=== PATIENT | female | born 1980 | race Caucasian/White ===

== ENCOUNTER → 2017-08-29 | Outpatient (CLI) | payer OTHER | LOC: M RAD 15:12 | DX: R10.32 Left lower quadrant pain (principal); N85.8 Other specified noninflammatory disorders of uterus; R93.8 Abnormal findings on diagnostic imaging of other specified body structures | CPT/HCPCS: 76856 ==

== ENCOUNTER → 2017-08-29 | Outpatient (CLI) | payer OTHER ==
[2017-08-29 19:23] LABS: BASO % 0.3 % (0.0-1.0); EOS % 0.3 % (0.0-3.0); HEMATOCRIT 41.9 % (36.0-47.0); HEMOGLOBIN 14.5 g/dl (12.0-16.0); IMMATURE GRANULOCYTE % 0.4 % (0-3.0); LYMPH % 8.4 % (24.0-44.0); MEAN CORPUSCULAR HGB CONC 34.6 g/dl (32.0-36.5); MEAN CORPUSCULAR VOLUME 92.5 fl (80.0-96.0); MONO # 0.5 10^3/uL (0.0-0.8); MONO % 4.4 % (0.0-5.0); NEUTROPHILS # 10.2 10^3/uL (1.8-7.7); NEUTROPHILS % 86.2 % (36.0-66.0); PLATELET COUNT, AUTOMATED 252 10^3/uL (150-450); RED BLOOD COUNT 4.53 10^6/uL (4.00-5.40); RED CELL DISTRIBUTION WIDTH 12.8 % (11.5-14.5); WHITE BLOOD COUNT 11.9 10^3/uL (4.0-10.0)
[2017-08-29 19:34] LABS: ALBUMIN 4.2 GM/DL (3.2-5.2); ALBUMIN/GLOBULIN RATIO 1.31 (1.00-1.93); ALKALINE PHOSPHATASE 80 U/L (45-117); ALT/SGPT 17 U/L (12-78); ANION GAP 8 MEQ/L (8-16); AST/SGOT 13 U/L (7-37); BILIRUBIN,TOTAL 0.6 MG/DL (0.2-1.0); BLOOD UREA NITROGEN 11 MG/DL (7-18); CALCIUM LEVEL 9.4 MG/DL (8.5-10.1); CARBON DIOXIDE LEVEL 24 MEQ/L (21-32); CHLORIDE LEVEL 107 MEQ/L (98-107); CREATININE FOR GFR 1.05 MG/DL (0.55-1.30); GLOMERULAR FILTRATION RATE > 60.0 (>60); GLUCOSE, FASTING 119 MG/DL (70-100); POTASSIUM SERUM 4.2 MEQ/L (3.5-5.1); SODIUM LEVEL 139 MEQ/L (136-145); TOTAL PROTEIN 7.4 GM/DL (6.4-8.2)
== END ==
LOC: M WUC 16:53
DX: R10.32 Left lower quadrant pain (principal)
CPT/HCPCS: 80053

== ENCOUNTER → 2017-09-03 | Outpatient (CLI) | payer OTHER | LOC: M RAD 10:18 | DX: M25.472 Effusion, left ankle (principal) | CPT/HCPCS: 73610 ==

== ENCOUNTER 2017-11-07 05:52 | Day surgery (SDC) | payer OTHER ==
[2017-11-07] MEDS ORDERED: LR 1,000 ML IV (06:00)
[2017-11-07] MEDS: LR 1,000 ML IV ×4 (06:24→17:30)
[2017-11-07] MEDS ORDERED: MIDAZOLAM INJ 2 MG/2 ML VIAL (J2250) As Ordered (07:42)
[2017-11-07] MEDS ORDERED: fentaNYL 250 MCG/5 ML INJECTION (J3010) As Ordered (07:42)
[2017-11-07] MEDS ORDERED: ROCURONIUM BROMIDE 50 MG/5 ML VIAL As Ordered ×3 (08:17→08:40)
[2017-11-07] MEDS ORDERED: dexameTHASONE 4 MG/ML 1ML VIAL (J1100) As Ordered (08:40)
[2017-11-07] MEDS ORDERED: LIDOCAINE 2% INJ 100 MG/5 ML SDV (FOR ANES.) As Ordered (08:40)
[2017-11-07] MEDS ORDERED: PROPOFOL 200 MG/20 ML VIAL As Ordered (08:40)
[2017-11-07] MEDS ORDERED: fentaNYL 100 MCG/2 ML INJECTION (J3010) As Ordered (08:41)
[2017-11-07] MEDS ORDERED: KETOROLAC 60 MG/2 ML VIAL (J1885) As Ordered (08:41)
[2017-11-07] MEDS ORDERED: ONDANSETRON 4MG/2ML VIAL (J2405) As Ordered (08:41)
[2017-11-07] MEDS: MORPHINE 1MG/ML IN 0.9% NACL 100ML IV BAG IV (09:15)
[2017-11-07] MEDS ORDERED: MORPHINE 1MG/ML IN 0.9% NACL 100ML IV BAG As Ordered (09:17)
[2017-11-07] MEDS ORDERED: fentaNYL 100 MCG/2 ML INJECTION (J3010) IV (09:30)
[2017-11-07] MEDS ORDERED: NALBUPHINE HCL 10 MG/ML AMP (J2300) IV (09:30)
[2017-11-07] MEDS ORDERED: PERCOCET 5MG/325MG TAB PO (09:30)
[2017-11-07] MEDS ORDERED: NALOXONE INJ 0.4 MG/1 ML VIAL (J2310) IV (09:30)
[2017-11-07] MEDS ORDERED: IBUPROFEN 600 MG TAB PO (09:30)
[2017-11-07] MEDS ORDERED: diphenhydrAMINE INJ 50MG/ML VIAL (J1200) IV (09:30)
[2017-11-07] MEDS ORDERED: METOCLOPRAMIDE INJ 10MG/2ML VIAL (J2765) IV (09:30)
[2017-11-07] MEDS ORDERED: ONDANSETRON 4MG/2ML VIAL (J2405) IV (09:30)
[2017-11-07] MEDS ORDERED: EPIDURAL/PCA KEYS XX (09:30)
[2017-11-07] MEDS: MEPERIDINE INJ 25 MG/ML VIAL (J2175) IV ×2 (09:35→09:45)
[2017-11-07] MEDS: tiZANidine 4 MG TAB PO (20:44)
[2017-11-08] MEDS: LR 1,000 ML IV (00:35)
[2017-11-08 07:04] LABS: HEMATOCRIT 32.5 % (36.0-47.0); HEMOGLOBIN 11.2 g/dl (12.0-15.5); MEAN CORPUSCULAR HEMOGLOBIN 32.1 pg (27.0-33.0); MEAN CORPUSCULAR HGB CONC 34.5 g/dl (32.0-36.5); MEAN CORPUSCULAR VOLUME 93.1 fl (80.0-96.0); PLATELET COUNT, AUTOMATED 169 10^3/uL (150-450); RED BLOOD COUNT 3.49 10^6/uL (4.00-5.40); RED CELL DISTRIBUTION WIDTH 12.8 % (11.5-14.5)
[2017-11-08] MEDS: ESCITALOPRAM OXALATE 10 MG TAB (LEXAPRO) PO (08:55)
[2017-11-08] MEDS: TOPIRAMATE (TopAMAX) 25 MG TAB PO (08:56)
[2017-11-08] MEDS: NORCO, ANEXSIA 5/325MG TABLET (HYDROcodone/ACETAMINOPHEN) PO (09:01)
== END 2017-11-08 10:30 | disposition home or self-care (01) ==
LOC: M SDC 05:52 → M PED 10:19
DX: N94.6 Dysmenorrhea, unspecified (principal); N94.10 Unspecified dyspareunia; D68.0 Von Willebrand disease; M54.9 Dorsalgia, unspecified; F32.9 Major depressive disorder, single episode, unspecified; Z91.030 Bee allergy status; Z79.899 Other long term (current) drug therapy
CPT/HCPCS: 58262

== ENCOUNTER → 2018-11-17 | Outpatient (REF) | payer OTHER ==
[~2018-11-17] MED LIST: ALEV220C2 PO; IBUP-1022 PO; IBUP200C PO; LEXA1TAB PO; MOBI15TA PO; MULTCAP8 PO; NEUR300C PO; NORC1TAB7 PO; PERC5TAB12 PO; ROBA500T PO; TIZA4CAP PO; TOPI1CAP4 PO; TRAM50TA2 PO; ULTR100T PO; ULTR50TA PO
== END ==
LOC: M WUC 12:17
PROVIDERS: ATTEND Physician Assistant
DX: N39.0 Urinary tract infection, site not specified (principal)

== ENCOUNTER → 2018-12-17 | Outpatient (REF) | payer OTHER | LOC: M LAB REF 12:36 | PROVIDERS: ATTEND Physician Assistant | DX: R30.0 Dysuria (principal) ==

== ENCOUNTER → 2019-01-20 | Outpatient (REF) | payer OTHER | LOC: M LAB REF 09:33 | PROVIDERS: ATTEND Nurse Practitioner Family | DX: R30.0 Dysuria (principal) ==

== ENCOUNTER → 2019-03-07 | Outpatient (REF) | payer OTHER | LOC: M LAB REF 08:48 | PROVIDERS: ATTEND Physician Assistant | DX: N39.0 Urinary tract infection, site not specified (principal) ==

== ENCOUNTER → 2019-03-27 | Outpatient (REF) | payer OTHER | LOC: M SFHCLERA 11:24 | PROVIDERS: ATTEND Physician Assistant | DX: J02.9 Acute pharyngitis, unspecified (principal) ==

== ENCOUNTER → 2019-04-01 | Outpatient (REF) | payer OTHER | LOC: M LAB REF 16:09 | PROVIDERS: ATTEND Physician Assistant | DX: R30.0 Dysuria (principal) ==

== ENCOUNTER → 2019-04-09 | Outpatient (CLI) | payer OTHER ==
--- NOTE | 2019-04-10 04:59 | REP ---
Clinical: Urinary tract infection. Technique: Real time ornelas scale and color ultrasound examination using curved array transducer. Findings: Bilateral kidneys are normal in contour, size, echogenicity without hydronephrosis, nephrolithiasis, cystic or renal mass lesion. No perinephric fluid collection. Right kidney measures 10.7 x 4.6 x 4.6 cm. Left kidney measures 10.8 x 4.9 x 4.6 cm. Bladder is normal in appearance without wall thickening or mass lesion. Bilateral ureteral jets are identified. Small amount of layering debris is nonspecific and may be correlated with urinalysis. Prevoid bladder measures 9.4 x 8.4 x 6.0 cm (265 ml) . Postvoid bladder measures 5.4 x 4.3 x 2.0 cm (26 ml) . Postvoid residual equals 10%. Impression: Essentially normal renal and bladder ultrasound. Electronically Signed by Jean Tong MD 04/10/2019 04:50 A
== END ==
LOC: M RAD 10:33
PROVIDERS: ATTEND Nurse Practitioner Family
DX: N39.0 Urinary tract infection, site not specified (principal)

== ENCOUNTER 2019-05-07 21:50 | Emergency (ER) | payer OTHER ==
[2019-05-07 22:08] VITALS: BP 127/77
[2019-05-07] MEDS ORDERED: METH750T2 PO (22:42)
[2019-05-07] MEDS ORDERED: AZO-95TA3 PO (22:42)
[2019-05-07] MEDS ORDERED: TROK1CAP PO (22:42)
[2019-05-07 22:43] LABS: HEMOGLOBIN 15.2 g/dl (12.0-15.5); MEAN CORPUSCULAR HEMOGLOBIN 32.8 pg (27.0-33.0); MEAN CORPUSCULAR HGB CONC 33.8 g/dl (32.0-36.5); MEAN CORPUSCULAR VOLUME 97.2 fl (80.0-96.0); PLATELET COUNT, AUTOMATED 265 10^3/uL (150-450); RED BLOOD COUNT 4.63 10^6/uL (4.00-5.40); WHITE BLOOD COUNT 11.8 10^3/uL (4.0-10.0)
[2019-05-07 23:08] LABS: AMPHETAMINES LEVEL URINE NEGATIVE (NEGATIVE); BARBITURATES URINE NEGATIVE (NEGATIVE); BENZODIAZEPINES URINE NEGATIVE (NEGATIVE); CANNABINOIDS URINE NEGATIVE (NEGATIVE); COCAINE METABOLITE URINE NEGATIVE (NEGATIVE); METHADONE URINE NEGATIVE (NEGATIVE); OPIATES URINE NEGATIVE (NEGATIVE); PHENCYCLIDINE URINE NEGATIVE (NEGATIVE)
[2019-05-07 23:14] LABS: HCG, SERUM QUALITATIVE NEGATIVE (NEGATIVE)
[2019-05-07 23:16] LABS: ACETAMINOPHEN LEVEL < 2.0 UG/ML (10.0-30.0); ALBUMIN 3.9 GM/DL (3.2-5.2); ALT/SGPT 21 U/L (12-78); BILIRUBIN,DIRECT < 0.1 MG/DL (0.0-0.2); BILIRUBIN,TOTAL 0.2 MG/DL (0.2-1.0); BLOOD UREA NITROGEN 12 MG/DL (7-18); CALCIUM LEVEL 9.9 MG/DL (8.5-10.1); CARBON DIOXIDE LEVEL 26 MEQ/L (21-32); CHLORIDE LEVEL 111 MEQ/L (98-107); ETHYL ALCOHOL (ETHANOL) 0.078 % (0.000-0.010); GLOMERULAR FILTRATION RATE > 60.0 (>60); GLUCOSE, FASTING 102 MG/DL (70-100); POTASSIUM SERUM 3.5 MEQ/L (3.5-5.1); SODIUM LEVEL 144 MEQ/L (136-145); TOTAL PROTEIN 7.1 GM/DL (6.4-8.2)
== END 2019-05-08 00:15 | disposition home or self-care (01) ==
LOC: M ED 21:50
DX: F43.0 Acute stress reaction (principal); M54.5 Low back pain; G89.29 Other chronic pain; F17.210 Nicotine dependence, cigarettes, uncomplicated; Z91.030 Bee allergy status; Z79.891 Long term (current) use of opiate analgesic; Z79.899 Other long term (current) drug therapy
CPT/HCPCS: 36415; 80048; 80076; 80307; 84443; 84703; 85027; 99284; G0480

== ENCOUNTER → 2019-05-15 | Outpatient (CLI) | payer OTHER ==
[~2019-05-15] MED LIST changes: +AZO-95TA3 PO; +METH750T2 PO; +TROK1CAP PO
--- NOTE | 2019-05-15 13:04 | REP ---
MRI lumbar spine: 05/15/2019. Indication: Low back pain. Comparison: 12/12/2015. Technique: Multiplanar short and long TR sequences of the lumbar spine were obtained including post-gadolinium imaging. 12 ml IV ProHance were administered. Findings: Idiopathic scoliosis of the thoracolumbar spine is noted. Disc desiccation and disc space narrowing are present at L3/L4, L4/L5, T11/T12 and T12/L1. Mild disc desiccation and mild disc space narrowing are additionally noted at L1/L2. No worrisome marrow signal is present. The visualized cord is unremarkable. Susceptibility artifact posterior to the conus medullaris is noted rendering evaluation of the anatomy adjacent to this region suboptimal. No significant paraspinal soft tissue abnormalities are present. There are no areas of pathologic gadolinium enhancement. L1/L2: Mild diffuse disc bulge is present without significant spinal canal or neural foraminal narrowing. L2/L3: Unremarkable. L3/L4: Diffuse disc bulge and bilateral facet arthropathy are present with mild recess and moderate right neural foraminal narrowing. L4/L5: There is a small left paracentral disc protrusion superimposed on a diffuse disc bulge with bilateral facet arthropathy. There is moderate to severe left recess narrowing with posterior displacement of the left L5 nerve root. Moderate right and mild left neural foraminal narrowing is present. L5/S1: Partial sacralization of L5 is noted. This level is otherwise unremarkable. Impression: Degenerative sequelae most pronounced on the left at the L 09/2004 as described. Scoliosis. Electronically Signed by Tonio Posadas DO 05/15/2019 12:55 P
== END ==
LOC: M PLARAD 08:16
PROVIDERS: ATTEND Physician Assistant
DX: M51.36 Other intervertebral disc degeneration, lumbar region (principal); M41.9 Scoliosis, unspecified; M51.26 Other intervertebral disc displacement, lumbar region; M46.96 Unspecified inflammatory spondylopathy, lumbar region

== ENCOUNTER 2019-05-28 12:31 | Emergency (ER) | payer OTHER ==
[~2019-05-28] VITALS: Ht 157.5 cm; Wt 56.4 kg
[2019-05-28] MEDS ORDERED: GABA-843 (12:40)
[2019-05-28] MEDS ORDERED: ONDANSETRON 4MG/2ML VIAL (J2405) IV ONE (13:30)
[2019-05-28] MEDS ORDERED: MORPHINE 4 MG/ML 1ML VIAL/SYRINGE (J2270) IV ONE ×2 (13:30→16:15)
--- NOTE | 2019-05-28 13:49 | REP ---
CT lumbar spine: 05/28/2019. Indication: Low back pain. Comparison: 05/15/2019. Technique: Unenhanced axial images of the lumbar spine were obtained with coronal and sagittal reconstructions provided. Findings: Scoliosis is redemonstrated. There is no acute fracture, subluxation or dislocation. The left L4/L5 recess narrowing is better demonstrated on the recent MRI. No acute spinal canal or paraspinal soft tissue abnormalities are detected. There are no lytic or blastic lesions of the visualized bones. Impression: No acute osseous injury of the lumbar spine. Electronically Signed by Tonio Posadas DO 05/28/2019 01:40 P
[2019-05-28 14:10] LABS: BASO % 0.6 % (0.0-1.0); EOS % 0.3 % (0.0-3.0); HEMATOCRIT 45.9 % (36.0-47.0); HEMOGLOBIN 15.9 g/dl (12.0-15.5); LYMPH % 15.7 % (24.0-44.0); MEAN CORPUSCULAR HEMOGLOBIN 33.1 pg (27.0-33.0); MEAN CORPUSCULAR HGB CONC 34.6 g/dl (32.0-36.5); MEAN CORPUSCULAR VOLUME 95.4 fl (80.0-96.0); MONO # 0.3 10^3/uL (0.0-0.8); MONO % 5.1 % (0.0-5.0); NEUTROPHILS # 4.9 10^3/uL (1.5-8.5); PLATELET COUNT, AUTOMATED 306 10^3/uL (150-450); RED BLOOD COUNT 4.81 10^6/uL (4.00-5.40); WHITE BLOOD COUNT 6.3 10^3/uL (4.0-10.0)
[2019-05-28] MEDS ORDERED: LIDOCAINE 5% (LIDODERM) PATCH TD ONE (15:30)
[2019-05-28] MEDS ORDERED: GABAPENTIN 300 MG CAP PO ONE (15:30)
[2019-05-28] MEDS ORDERED: methylPREDNISolone INJ 125 MG/2 ML VIAL (J2930) IV ONE (16:15)
[2019-05-28] MEDS ORDERED: GABA-845 PO (16:19)
[2019-05-28] MEDS ORDERED: PRED20TA PO (16:19)
[2019-05-28 17:32] VITALS: BP 130/68
[2019-05-29] MEDS ORDERED: **NOTE PATIENT COMMENT** MISC XX SCH (03:00)
== END 2019-05-28 17:42 | disposition home or self-care (01) ==
LOC: M ED 12:31
DX: M51.17 Intervertebral disc disorders with radiculopathy, lumbosacral region (principal); M41.9 Scoliosis, unspecified; S39.012A Strain of muscle, fascia and tendon of lower back, initial encounter; X58.XXXA Exposure to other specified factors, initial encounter; Y92.89 Other specified places as the place of occurrence of the external cause; D68.0 Von Willebrand disease; Z79.899 Other long term (current) drug therapy
CPT/HCPCS: 72131; 80047; 85025; 96374; 96375; 96376; 99284; J2270; J2405; J2930

== ENCOUNTER → 2019-10-01 | Outpatient (REF) | payer OTHER ==
[~2019-10-01] MED LIST changes: +GABA-843; +GABA-845 PO; +PRED20TA PO
[2019-10-01 17:36] LABS: APPEARANCE, URINE CLEAR (CLEAR); BACTERIA, URINE AUTO 1+ (NEGATIVE); BILIRUBIN, URINE AUTO NEGATIVE (NEGATIVE); BLOOD, URINE BLOOD NEGATIVE (NEGATIVE); COLOR, URINE YELLOW (YELLOW); GLUCOSE, URINE (UA) AUTO NEGATIVE (NEGATIVE); KETONE, URINE AUTO NEGATIVE (NEGATIVE); LEUKOCYTE ESTERASE, URINE AUTO NEGATIVE (NEGATIVE); NITRITE, URINE AUTO NEGATIVE (NEGATIVE); PROTEIN, URINE AUTO NEGATIVE (NEGATIVE); RBC, URINE AUTO 0 /HPF (0-3); SPECIFIC GRAVITY URINE AUTO 1.003 (1.002-1.035); SQUAMOUS EPITHELIAL CELL UR AU 2 /HPF (0-6); UROBILINOGEN, URINE AUTO 0.2 mg/dL (0.0-2.0); WBC, URINE AUTO 4 /HPF (0-3)
== END ==
LOC: M SMT 17:02
PROVIDERS: ATTEND Nurse Practitioner Family
DX: R30.0 Dysuria (principal)

== ENCOUNTER → 2020-11-26 | Outpatient (REF) | payer OTHER ==
[~2020-11-26] MED LIST changes: +GABA-282; +GABA-283 PO; -GABA-843; -GABA-845 PO; +METH-1165 PO; -METH750T2 PO
== END ==
LOC: M WUC 17:43
PROVIDERS: ATTEND Physician Assistant
DX: J02.9 Acute pharyngitis, unspecified (principal)

== ENCOUNTER → 2021-08-16 | Outpatient (CLI) | payer OTHER | LOC: M WHC 08:08 | PROVIDERS: ATTEND Internal Medicine | DX: R92.2 Inconclusive mammogram (principal) ==

== ENCOUNTER → 2023-08-07 | Outpatient (CLI) | payer OTHER ==
[~2023-08-07] MED LIST changes: +ALPR0.25; +AMIT25TA19; +ESCITALOPRAM; -GABA-283 PO; +GABA-284 PO; +GABA600T4 PO; +OXYC-517; +SUMA50TA2
== END ==
LOC: M WUC 10:01
PROVIDERS: ATTEND Physician Assistant
DX: M79.671 Pain in right foot (principal)